=== PATIENT | male | born 1965 | race Caucasian/White ===

== ENCOUNTER → 2017-01-22 | Outpatient (CLI) | payer OTHER ==
--- NOTE | 2017-01-22 17:07 | MR ---
EXAMINATION TYPE: MR brain and iac wo/w con DATE OF EXAM: 01/22/2017 3:48 PM COMPARISON: NONE HISTORY: Dizziness TECHNIQUE: Multiplanar, multiecho imaging of the brain was obtained with and without intravenous adm inistration of 20 mL intravenous MultiHance. FINDINGS: structures are unremarkable. There is a normal craniocervical junction. Echoplanar diffusion imaging is normal. There are normal vascular flow voids. No FLAIR dataset was performed. The orbits appear normal. High-resolution imaging through the posterior fossa exquisitely demonstrates the seventh 8th nerve co mplex bilaterally without evidence of a CP angle mass lesion or intracanalicular acoustic schwannoma. Following intravenous administration of gadolinium, I do not see evidence of abnormal enhancement. Sp ecifically, I do not see evidence of intracanalicular enhancement. IMPRESSION: 1. NO EVIDENCE OF A CP ANGLE MASS LESION OR INTRACANALICULAR ACOUSTIC SCHWANNOMA. 2. INADVERTENT FAILURE TO OBTAIN A FLAIR DATASET. THE PATIENT WILL BE BROUGHT BACK AND AN ADDENDUM WI LL BE PROVIDED.
== END | disposition home or self-care (01) ==
LOC: RADMRIMAIN 14:57
PROVIDERS: ATTEND Internal Medicine
DX: R42 Dizziness and giddiness (principal)
CPT/HCPCS: 70553; A9577

== ENCOUNTER → 2017-01-31 | Outpatient (CLI) | payer OTHER ==
--- NOTE | 2017-02-03 09:18 | ENG ---
VNG INDICATIONS: A 51-year-old male with dizziness and vertigo that began 2 years ago, gradual onset, getting worse, occurring in spells, but can have them for a week at a time during which is constant. Dizziness can be triggered by positional changes such as going from lying to seated position turning the head left to right, bending over, moving ahead or when in the car or driving. There is no reported hearing difficulties or tinnitus or pain, fullness or pressure in the ears. He also experiences light-headedness and can experience headaches with the symptoms. VNG FINDINGS: Saccades shows intact peak velocities, accuracies and latencies. Gaze with fixation is negative for nystagmus in all the directions of gaze including centrally with vision denied. Tracking shows no breakups. Optokinetic nystagmus shows no significant asymmetries at faster or slower speeds. Static position testing shows no nystagmus in any of the 6 positions tested either with eyes open or with vision denied. Dellrose-Hallpike maneuvers unable to do due to mobility issues. Caloric testing shows an 8% unilateral left caloric weakness, which is within normal limits. Fixation index negative. IMPRESSION: Unremarkable VNG study. Shandra-Hallpike maneuver is not able to be done and so could not exclude benign positional vertigo. MTDD
== END | disposition home or self-care (01) ==
LOC: NEUROMAIN 06:47
PROVIDERS: ATTEND Internal Medicine
DX: R42 Dizziness and giddiness (principal)
CPT/HCPCS: 92537; 92540

== ENCOUNTER → 2017-02-06 | Outpatient (CLI) | payer OTHER ==
--- NOTE | 2017-02-06 21:12 | MR ---
EXAMINATION TYPE: MR cervical spine wo con DATE OF EXAM: 02/06/2017 COMPARISON: NONE HISTORY: Radiculopathy, M 54.12, neck pain TECHNIQUE: Multiplanar, multisequence images of the cervical spine were acquired. C2-C3: No evidence for degenerative disc disease. No disc bulge/herniation or protrusion. No Canal stenosis. Foramina are patent bilaterally. C3-C4: Left posterior paracentral extension of endplate disc complex causes minimal anterior lateral mass effect on the thecal sac, left-sided foraminal encroachment. C4-C5: Small central posterior disc herniation causes only slight anterior mass effect on the thecal sac. C5-C6: Posterior broad-based disc bulge causes anterior mass effect on the thecal sac. Lateral extens ion of endplate disc complex causes bilateral foraminal encroachment. No significant central stenosis . C6-C7: Broad-based posterior disc bulge, endplate disc complex causes minimal anterior mass effect on the thecal sac. No significant central stenosis. C7-T1: No evidence for degenerative disc disease. No disc bulge/herniation or protrusion. No Canal stenosis. Foramina are patent bilaterally. Cervical segments are intact. There is normal alignment. Cervical spinal cord is of normal signal. Craniovertebral junction relationships are within normal limits. IMPRESSION: Degenerative disc disease, foraminal encroachment as described.
== END | disposition home or self-care (01) ==
LOC: RADMRIMAIN 19:57
PROVIDERS: ATTEND Neurological Surgery
DX: M50.10 Cervical disc disorder with radiculopathy, unspecified cervical region (principal)
CPT/HCPCS: 72141

== ENCOUNTER 2020-06-09 11:06 | Observation (INO) | payer MEDICARE, OTHER ==
[2020-06-09 11:40] LABS: Basophils # (A) 0.1 k/uL (0-0.2); Basophils % (A) 1 %; Eosinophils # (A) 0.2 k/uL (0-0.7); Eosinophils % (A) 3 %; HCT 43.5 % (39.0-53.0); Lymphocytes # (A) 2.7 k/uL (1.0-4.8); Lymphocytes % (A) 38 %; MCH 31.1 pg (25.0-35.0); MCHC 34.6 g/dL (31.0-37.0); MCV 89.8 fL (80.0-100.0); Mean Platelet Volume 7.1; Monocytes # (A) 0.4 k/uL (0-1.0); Monocytes % (A) 5 %; Neutrophils # (A) 3.8 k/uL (1.3-7.7); Neutrophils % (A) 52 %; Platelet Count 203 k/uL (150-450); RBC 4.84 m/uL (4.30-5.90); RDW 11.9 % (11.5-15.5); WBC 7.3 k/uL (3.8-10.6)
--- NOTE | 2020-06-09 11:40 | ED ---
General Adult HPI - General Chief complaint: Chest Pain Stated complaint: chest pain Time Seen by Provider: 06/09/20 11:35 Source: patient, family, RN notes reviewed Mode of arrival: wheelchair Limitations: no limitations - History of Present Illness Initial comments: Patient is a pleasant 54-year-old male presenting to the emergency Department with complaints of chest discomfort. Patient has had some symptoms on and off over the past year. Symptoms worse this morning. Discomfort has started to improve and is currently mild rated 3/4. Discomfort feels like pressure across the chest. Patient was slightly short of breath and a little bit sweaty earlier. No nausea. No history of known cardiac problems. No leg pain or leg swelling. Discomfort is described as tightness. - Related Data Home Medications Medication Instructions Recorded Confirmed Ascorbic Acid [Vitamin C] 500 mg PO DAILY 06/09/20 06/09/20 Atorvastatin [Lipitor] 20 mg PO DAILY 06/09/20 06/09/20 Cholecalciferol [Vitamin D3 (25 1,000 unit PO DAILY 06/09/20 06/09/20 Mcg = 1000 Iu)] Escitalopram [Lexapro] 20 mg PO DAILY 06/09/20 06/09/20 Meloxicam [Mobic] 15 mg PO DAILY 06/09/20 06/09/20 Allergies Allergy/AdvReac Type Severity Reaction Status Date / Time hydromorphone [From Dilaudid] Allergy Rash/Hives Verified 06/09/20 12:45 Review of Systems ROS Statement: Those systems with pertinent positive or pertinent negative responses have been documented in the HPI. ROS Other: All systems not noted in ROS Statement are negative. Constitutional: Denies: fever Eyes: Denies: eye pain ENT: Denies: ear pain Respiratory: Reports: as per HPI. Denies: cough Cardiovascular: Reports: as per HPI, chest pain Endocrine: Reports: fatigue Gastrointestinal: Denies: abdominal pain, nausea Genitourinary: Denies: urgency Musculoskeletal: Denies: back pain Skin: Denies: rash Neurological: Denies: weakness Past Medical History Past Medical History: No Reported History, Hyperlipidemia Past Surgical History: Orthopedic Surgery Additional Past Surgical History / Comment(s): pyloric stenosis, shoulder and knee surgery Smoking Status: Former smoker Past Alcohol Use History: None Reported Past Drug Use History: None Reported General Exam Limitations: no limitations General appearance: alert, in no apparent distress Head exam: Present: normocephalic Eye exam: Present: normal appearance Neck exam: Present: normal inspection Respiratory exam: Present: normal lung sounds bilaterally. Absent: chest wall tenderness Cardiovascular Exam: Present: regular rate, normal rhythm Expanded Peripheral pulses: 2+: Radial (R), Radial (L), Dorsalis Pedis (R), Dorsalis Pedis (L) GI/Abdominal exam: Present: soft. Absent: tenderness Extremities exam: Present: normal inspection. Absent: pedal edema, calf tenderness Neurological exam: Present: alert Psychiatric exam: Present: normal affect, normal mood Skin exam: Present: normal color Course Vital Signs 06/09/20 06/09/20 11:10 12:12 Temperature 98.3 F Pulse Rate 71 57 L Respiratory 18 18 Rate Blood Pressure 150/94 177/90 O2 Sat by Pulse 95 97 Oximetry EKG Findings - EKG Comments: EKG Findings:: Normal sinus rhythm 61. KS 164. QRS 100. QT 424. QTC 426. Normal axis. LVH criteria. No acute ST change. Medical Decision Making - Medical Decision Making Patient reevaluated and resting comfortably in bed. Only minimal discomfort at this time. Patient and family updated on results and plan. [facility] physician group has been paged for admission, covering for Dr. Farley, who admits for Dr. Centeno. - Lab Data Result diagrams: 06/09/20 11:22 06/09/20 11:22 Lab Results 06/09/20 06/09/20 06/09/20 Range/Units 11:22 11:22 11:22 WBC 7.3 (3.8-10.6) k/uL RBC 4.84 (4.30-5.90) m/uL Hgb 15.0 (13.0-17.5) gm/dL Hct 43.5 (39.0-53.0) % MCV 89.8 (80.0-100.0) fL MCH 31.1 (25.0-35.0) pg MCHC 34.6 (31.0-37.0) g/dL RDW 11.9 (11.5-15.5) % Plt Count 203 (150-450) k/uL MPV 7.1 Neutrophils % 52 % Lymphocytes % 38 % Monocytes % 5 % Eosinophils % 3 % Basophils % 1 % Neutrophils # 3.8 (1.3-7.7) k/uL Lymphocytes # 2.7 (1.0-4.8) k/uL Monocytes # 0.4 (0-1.0) k/uL Eosinophils # 0.2 (0-0.7) k/uL Basophils # 0.1 (0-0.2) k/uL PT 10.1 (9.0-12.0) sec INR 1.0 (<1.2) APTT 24.4 (22.0-30.0) sec D-Dimer (<0.60) mg/L FEU Sodium 138 (137-145) mmol/L Potassium 4.2 (3.5-5.1) mmol/L Chloride 110 H (98-107) mmol/L Carbon Dioxide 23 (22-30) mmol/L Anion Gap 5 mmol/L BUN 16 (9-20) mg/dL Creatinine 0.90 (0.66-1.25) mg/dL Est GFR (CKD-EPI)AfAm >90 (>60 ml/min/1.73 sqM) Est GFR (CKD-EPI)NonAf >90 (>60 ml/min/1.73 sqM) Glucose 111 H (74-99) mg/dL Calcium 9.0 (8.4-10.2) mg/dL Magnesium 1.9 (1.6-2.3) mg/dL Total Bilirubin 0.6 (0.2-1.3) mg/dL AST 29 (17-59) U/L ALT 24 (4-49) U/L Alkaline Phosphatase 59 (38-126) U/L Troponin I (0.000-0.034) ng/mL Total Protein 6.6 (6.3-8.2) g/dL Albumin 3.9 (3.5-5.0) g/dL 06/09/20 06/09/20 Range/Units 11:22 11:22 WBC (3.8-10.6) k/uL RBC (4.30-5.90) m/uL Hgb (13.0-17.5) gm/dL Hct (39.0-53.0) % MCV (80.0-100.0) fL MCH (25.0-35.0) pg MCHC (31.0-37.0) g/dL RDW (11.5-15.5) % Plt Count (150-450) k/uL MPV Neutrophils % % Lymphocytes % % Monocytes % % Eosinophils % % Basophils % % Neutrophils # (1.3-7.7) k/uL Lymphocytes # (1.0-4.8) k/uL Monocytes # (0-1.0) k/uL Eosinophils # (0-0.7) k/uL Basophils # (0-0.2) k/uL PT (9.0-12.0) sec INR (<1.2) APTT (22.0-30.0) sec D-Dimer 0.19 (<0.60) mg/L FEU Sodium (137-145) mmol/L Potassium (3.5-5.1) mmol/L Chloride (98-107) mmol/L Carbon Dioxide (22-30) mmol/L Anion Gap mmol/L BUN (9-20) mg/dL Creatinine (0.66-1.25) mg/dL Est GFR (CKD-EPI)AfAm (>60 ml/min/1.73 sqM) Est GFR (CKD-EPI)NonAf (>60 ml/min/1.73 sqM) Glucose (74-99) mg/dL Calcium (8.4-10.2) mg/dL Magnesium (1.6-2.3) mg/dL Total Bilirubin (0.2-1.3) mg/dL AST (17-59) U/L ALT (4-49) U/L Alkaline Phosphatase (38-126) U/L Troponin I <0.012 (0.000-0.034) ng/mL Total Protein (6.3-8.2) g/dL Albumin (3.5-5.0) g/dL - Radiology Data Radiology results: image reviewed (Chest x-ray does not reveal acute process. Chronic appearing changes) Disposition Clinical Impression: Chest pain Disposition: ADMITTED IP TO THIS HOSP Is patient prescribed a controlled substance at d/c from ED?: No Referrals: Tim Wheatley MD [Primary Care Provider] - 1-2 days Decision Time: 13:37
--- NOTE | 2020-06-09 11:44 | XR ---
EXAMINATION TYPE: XR chest 2V DATE OF EXAM: 06/09/2020 COMPARISON: None HISTORY: 54-year-old male with chest pain TECHNIQUE: PA and lateral views FINDINGS: Heart normal size. Aorta and pulmonary vasculature within normal limits. Mild interstitial prominence . No consolidation or pleural effusion. IMPRESSION: Chronic-appearing changes, possible underlying bronchitis or chronic asthma given interstitial promin ence. Otherwise, no acute process seen.
[2020-06-09 11:51] LABS: ALT 24 U/L (4-49); AST 29 U/L (17-59); African American GFR (CKD) >90 (>60 ml/min/1.73 sqM); Albumin 3.9 g/dL (3.5-5.0); Alkaline Phosphatase 59 U/L (38-126); Anion Gap 5 mmol/L; Blood Urea Nitrogen 16 mg/dL (9-20); Carbon Dioxide 23 mmol/L (22-30); Chloride 110 mmol/L (98-107); Glucose 111 mg/dL (74-99); Magnesium 1.9 mg/dL (1.6-2.3); Non-African American GFR(CKD) >90 (>60 ml/min/1.73 sqM); Potassium 4.2 mmol/L (3.5-5.1); Prothrombin Time 10.1 sec (9.0-12.0); Sodium 138 mmol/L (137-145); Total Bilirubin 0.6 mg/dL (0.2-1.3); Total Protein 6.6 g/dL (6.3-8.2)
[2020-06-09 11:52] LABS: Partial Thromboplastin Time 24.4 sec (22.0-30.0)
[2020-06-09] MEDS ORDERED: ASPIRIN 81 MG PO STA (12:02)
[2020-06-09] MEDS ORDERED: NITROGLYCERIN OINT 1 INCH/GM PACKET TOPICAL STA (12:02)
[2020-06-09] MEDS ORDERED: NITROGLYCERIN SL TABS 0.4 MG TAB SUBLINGUAL PRN (13:37)
[2020-06-09] MEDS ORDERED: IPRATROPIUM-ALBUTEROL 3 ML NEB INHALATION PRN (17:24)
--- NOTE | 2020-06-09 17:24 | P.HPIM ---
History of Present Illness H&P Date: 06/09/20 Chief Complaint: Chest pain The patient is a 54-year-old male with history of hyperlipidemia [id number] tobacco history quit smoking in August of this year. The patient states he has had on and off chest pain for the last year but has not been seen by medical profession. He denies any association with activity related to his chest pain however he has noticed increased shortness of breath since he stopped smoking. The patient denies any association with food. Last night he had pain that he rated 8 out 10 without associated nausea or vomiting he denied any fevers or chills came to the emergency room to evaluate for evaluation his initial workup was negative however given his risk factor profile was hospitalized for further workup and management. Review of Systems Complete review of systems done and negative other than stated above Past Medical History Past Medical History: No Reported History, Hyperlipidemia History of Any Multi-Drug Resistant Organisms: None Reported Past Surgical History: Orthopedic Surgery Additional Past Surgical History / Comment(s): pyloric stenosis, shoulder and knee surgery Past Anesthesia/Blood Transfusion Reactions: No Reported Reaction Past Psychological History: No Psychological Hx Reported Smoking Status: Former smoker Past Alcohol Use History: None Reported Past Drug Use History: None Reported Medications and Allergies Home Medications Medication Instructions Recorded Confirmed Type Ascorbic Acid [Vitamin C] 500 mg PO DAILY 06/09/20 06/09/20 History Atorvastatin [Lipitor] 20 mg PO DAILY 06/09/20 06/09/20 History Cholecalciferol [Vitamin D3 (25 1,000 unit PO DAILY 06/09/20 06/09/20 History Mcg = 1000 Iu)] Escitalopram [Lexapro] 20 mg PO DAILY 06/09/20 06/09/20 History Meloxicam [Mobic] 15 mg PO DAILY 06/09/20 06/09/20 History Allergies Allergy/AdvReac Type Severity Reaction Status Date / Time hydromorphone [From Dilaudid] Allergy Rash/Hives Verified 06/09/20 12:45 Physical Exam Vitals: Vital Signs Temp Pulse Pulse Resp BP BP Pulse Ox 06/09/20 16:57 97.5 F L 56 L 18 147/97 97 06/09/20 16:12 97.5 F L 67 16 154/84 98 06/09/20 15:56 55 L 18 148/88 96 06/09/20 14:13 55 L 18 144/88 95 06/09/20 13:18 56 L 18 144/97 96 06/09/20 12:12 57 L 18 177/90 97 06/09/20 11:10 98.3 F 71 18 150/94 95 Intake and Output 06/09/20 06/09/20 06/09/20 06:59 14:59 22:59 Other: # Voids 1 Weight 108.862 kg 108.862 kg - Constitutional General appearance: no acute distress - EENT Eyes: PERRLA - Respiratory Respiratory: bilateral: CTA - Cardiovascular Rhythm: regular - Gastrointestinal General gastrointestinal: normal bowel sounds - Integumentary Integumentary: normal - Neurologic Neurologic: CNII-XII intact - Musculoskeletal Musculoskeletal: strength equal bilaterally - Psychiatric Psychiatric: A&O x's 3, appropriate affect Results CBC & Chem 7: 06/09/20 11:22 06/09/20 11:22 Labs: Abnormal Lab Results - Last 24 Hours (Table) 06/09/20 Range/Units 11:22 Chloride 110 H (98-107) mmol/L Glucose 111 H (74-99) mg/dL Chest x-ray: report reviewed Abdominal x-ray: report reviewed Thrombosis Risk Factor Assmnt - Choose All That Apply Each Factor Represents 1 point: Age 41-60 years Thrombosis Risk Factor Assessment Total Risk Factor Score: 1 Thrombosis Risk Factor Assessment Level: Low Risk Assessment and Plan (1) Chest pain Narrative/Plan: Serial cardiac enzymes, morphine and oxygen nitro and aspirin, cardiology consu lt patient with risk factors of age hyperlipidemia on significant tobacco history Current Visit: Yes Status: Acute Code(s): R07.9 - CHEST PAIN, UNSPECIFIED SNOMED Code(s): 86094255 (2) Hyperlipidemia Narrative/Plan: Continue statin Current Visit: Yes Status: Acute Code(s): E78.5 - HYPERLIPIDEMIA, UNSPECIFIED SNOMED Code(s): 79759625 (3) Dyspnea Narrative/Plan: Brice cardiac in etiology however given his significant tobacco history if cardiac workup is negative consider COPD Current Visit: Yes Status: Acute Code(s): R06.00 - DYSPNEA, UNSPECIFIED SNOMED Code(s): 792509492
[2020-06-09] MEDS: NITROGLYCERIN OINT 1 INCH/GM PACKET TOPICAL SCH (17:59)
[2020-06-09] MEDS: ESCITALOPRAM 20 MG TAB PO SCH (18:52)
[2020-06-10] MEDS: NITROGLYCERIN OINT 1 INCH/GM PACKET TOPICAL SCH ×2 (00:46→05:21)
[2020-06-10 08:45] VITALS: BP 154/88; PULSE 63; RESP 16; TEMP 98
[2020-06-10] MEDS ORDERED: DOBUTamine DRIP for NUC MED 500 MG in DEXTROSE/WATER 1 250ML.BAG IV ONE (08:45)
[2020-06-10] MEDS ORDERED: ASPIRIN 325 MG TAB PO SCH (09:00)
[2020-06-10] MEDS ORDERED: CHOLECALCIFEROL 1,000 UNIT TAB PO SCH (09:00)
[2020-06-10] MEDS ORDERED: ASCORBIC ACID 500 MG TAB PO SCH (09:00)
[2020-06-10] MEDS ORDERED: ASPIRIN 81 MG PO SCH (09:00)
[2020-06-10] MEDS ORDERED: ATORVASTATIN 20 MG TAB PO SCH (09:00)
[2020-06-10] MEDS ORDERED: lisinopriL 20 MG TAB PO SCH (09:00)
[2020-06-10] MEDS: ESCITALOPRAM 20 MG TAB PO SCH (09:03)
[2020-06-10 10:03] LABS: African American GFR (CKD) >90 (>60 ml/min/1.73 sqM); Anion Gap 3 mmol/L; Blood Urea Nitrogen 13 mg/dL (9-20); Calcium 8.9 mg/dL (8.4-10.2); Carbon Dioxide 29 mmol/L (22-30); Chloride 106 mmol/L (98-107); Cholesterol 214 mg/dL (<200); Glucose 92 mg/dL (74-99); HDL Cholesterol 28 mg/dL (40-60); LDL Cholesterol,Calculated 146 mg/dL (0-99); Non-African American GFR(CKD) >90 (>60 ml/min/1.73 sqM); Potassium 4.2 mmol/L (3.5-5.1); Sodium 138 mmol/L (137-145); Triglycerides 202 mg/dL (<150)
--- NOTE | 2020-06-10 10:08 | ECHOF ---
Referral Reason:cp MEASUREMENTS -------- HEIGHT: 182.9 cm WEIGHT: 108.9 kg BP: IVSd: 1.3 cm (0.6 - 1.1) LVIDd: 4.4 cm (3.9 - 5.3) LVPWd: 1.2 cm (0.6 - 1.1) IVSs: 1.4 cm LVIDs: 3.3 cm LVPWs: 1.5 cm LA Diam: 4.0 cm (2.7 - 3.8) RVIDd: 3.4 cm (< 3.3) Ao Diam: 2.8 cm (2.0 - 3.7) LA Diam: 4.4 cm (2.7 - 3.8) AV Cusp: 2.1 cm (1.5 - 2.6) EPSS: 0.6 cm MV E Yonathan: 0.62 m/s MV DecT: 142 ms MV A Yonathan: 0.67 m/s MV E/A Ratio: 0.92 RAP: 5.00 mmHg RVSP: 23.58 mmHg MV EF SLOPE: 102.58 mm/s (70 - 150) MV EXCURSION: 17.70 mm (> 18.000) FINDINGS -------- Sinus rhythm. This was a technically good study. The left ventricular size is normal. There is mild concentric left ventricular hypertrophy. Overa ll left ventricular systolic function is low-normal with, an EF between 50 - 55 %. The right ventricle is normal in size. The left atrial size is normal. The right atrial size is normal. The aortic valve is trileaflet, and appears structurally normal. No aortic stenosis or regurgitation. Mild mitral regurgitation is present. Mild tricuspid regurgitation present. Right ventricular systolic pressure is normal at < 35 mmHg. There is no pulmonic regurgitation present. The aortic root size is normal. There is no pericardial effusion. CONCLUSIONS -------- 1. The left ventricular size is normal. 2. There is mild concentric left ventricular hypertrophy. 3. Overall left ventricular systolic function is low-normal with, an EF between 50 - 55 %. 4. The right ventricle is normal in size. 5. The left atrial size is normal. 6. The right atrial size is normal. 7. Mild mitral regurgitation is present. 8. Mild tricuspid regurgitation present. 9. There is no pulmonic regurgitation present. 10. The aortic root size is normal. 11. There is no pericardial effusion. MACHINE WOOD SANDER: Suzanne Ramirez RDCS
[2020-06-10] MEDS ORDERED: ATORVASTATIN 20 MG TAB PO STA (11:49)
--- NOTE | 2020-06-10 11:51 | P.CRDCN ---
History of Present Illness History of present illness: sweaty, chest pain across the chest. first time he felt this pain. HISTORY OF PRESENTING ILLNESS This is a pleasant 54-year-old male past medical history significant for dyslipidemia and former nicotine dependence. He denies prior history of coronary artery disease and does not follow with a contact manager for any reason. We have been asked to see in consultation for chest pain. He states yesterday while driving to work he had an episode of chest discomfort across his chest d escribed as a pressure sensation associated with acute diaphoresis and shortness of breath. The symptoms lasted for approximately 60-90 minutes before slowly subsiding on their own. In the past he has had chest discomfort over the previous one year but this was the most intense episode he has experienced. He is currently chest pain-free. He denies prior history of coronary artery disease and has never had a stress test. Blood pressure on arrival was elevated 150/94 and 177/90. He has never been diagnosed in the past with hypertension. He also complains of exertional shortness of breath that has been ongoing for the previous one year. He is quite active physically but frequently has to stop to catch his breath. DIAGNOSTICS EKG reveals sinus mechanism with LVH. Chest xray possible underlying bronchitis or chronic asthma with increased interstitial prominence, appears chronic. Laboratory reviewed, CBC unremarkable, d-dimer 0.19, sodium 138, potassium 4.2, creatinine 0.94, LDL 146, HDL 28 and cardiac enzymes negative 3. Current cardiac medications include atorvastatin 20 mg daily. REVIEW OF SYSTEMS At the time of my exam: CONSTITUTIONAL: Denies fever or chills. CARDIOVASCULAR: Denies chest pain, shortness of breath, orthopnea, PND or palpitations. RESPIRATORY: Denies cough. GASTROINTESTINAL: Denies abdominal pain, diarrhea, constipation, nausea or vomiting. MUSCULOSKELETAL: Denies myalgias. NEUROLOGIC: Denies numbness, tingling or weakness. ENDOCRINE: Denies fatigue, weight change, polydipsia or polyurina. GENITOURINARY: Denies burning, hematuria or urgency with micturation. HEMATOLOGIC: Denies history of anemia or bleeding. PHYSICAL EXAMINATION Blood pressure 154/88 heart rate 63 afebrile and maintaining oxygen saturation on room air. CONSTITUTIONAL: No apparent distress. HEENT: Head is normocephalic. Pupils are equal, round. Sclerae anicteric. Mucous membranes of the mouth are moist. No JVD. No carotid bruit. CHEST EXAMINATION: Lungs are clear to auscultation. No chest wall tenderness is noted on palpation or with deep breathing. HEART EXAMINATION: Regular rate and rhythm. S1, S2 heard. No murmurs, gallops or rub. ABDOMEN: Soft, nontender. Positive bowel sounds. EXTREMITIES: 2+ peripheral pulses, no lower extremity edema and no calf tenderness. NEUROLOGIC EXAMINATION: Patient is awake, alert and oriented x3. ASSESSMENT Chest pain Hypertension Dyslipidemia Former nicotine dependence PLAN An acute coronary event has been ruled out. Discontinue Nitropaste. Initiate lisinopril 20 mg daily for optimal blood pressure control. Increase Lipitor to 40 mg daily. Obtain 2-D echocardiogram and Doppler study to assess cardiac structure and function. Perform dobutamine stress echocardiogram to assess for stress-induced cardiac ischemia. Thank you kindly for this consultation. Nurse Practitioner note has been reviewed, I agree with a documented findings and plan of care. Patient was seen and examined. Past Medical History Past Medical History: No Reported History, Hyperlipidemia History of Any Multi-Drug Resistant Organisms: None Reported Past Surgical History: Orthopedic Surgery Additional Past Surgical History / Comment(s): pyloric stenosis, shoulder and knee surgery Past Anesthesia/Blood Transfusion Reactions: No Reported Reaction Past Psychological History: No Psychological Hx Reported Smoking Status: Former smoker Past Alcohol Use History: None Reported Past Drug Use History: None Reported Medications and Allergies Home Medications Medication Instructions Recorded Confirmed Type Ascorbic Acid [Vitamin C] 500 mg PO DAILY 06/09/20 06/09/20 History Atorvastatin [Lipitor] 20 mg PO DAILY 06/09/20 06/09/20 History Cholecalciferol [Vitamin D3 (25 1,000 unit PO DAILY 06/09/20 06/09/20 History Mcg = 1000 Iu)] Escitalopram [Lexapro] 20 mg PO DAILY 06/09/20 06/09/20 History Meloxicam [Mobic] 15 mg PO DAILY 06/09/20 06/09/20 History Allergies Allergy/AdvReac Type Severity Reaction Status Date / Time hydromorphone [From Dilaudid] Allergy Rash/Hives Verified 06/09/20 12:45 Physical Exam Vitals: Vital Signs Temp Pulse Pulse Resp BP BP Pulse Ox 06/10/20 03:50 97.6 F 65 17 120/57 96 06/09/20 19:50 97.4 F L 52 L 17 130/71 95 06/09/20 16:57 97.5 F L 56 L 18 147/97 97 06/09/20 16:12 97.5 F L 67 16 154/84 98 06/09/20 15:56 55 L 18 148/88 96 06/09/20 14:13 55 L 18 144/88 95 06/09/20 13:18 56 L 18 144/97 96 06/09/20 12:12 57 L 18 177/90 97 06/09/20 11:10 98.3 F 71 18 150/94 95 Intake and Output 06/09/20 06/10/20 06/10/20 22:59 06:59 14:59 Other: Voiding Method Toilet Toilet # Voids 1 Weight 108.862 kg Results 06/09/20 11:22 06/10/20 08:49 Cardiac Enzymes 06/09/20 06/09/20 06/09/20 Range/Units 11:22 11:22 15:11 AST 29 (17-59) U/L Troponin I <0.012 <0.012 (0.000-0.034) ng/mL 06/09/20 Range/Units 17:15 AST (17-59) U/L Troponin I <0.012 (0.000-0.034) ng/mL Coagulation 06/09/20 Range/Units 11: PT 10.1 (9.0-12.0) sec APTT 24.4 (22.0-30.0) sec CBC 06/09/20 Range/Units 11:22 WBC 7.3 (3.8-10.6) k/uL RBC 4.84 (4.30-5.90) m/uL Hgb 15.0 (13.0-17.5) gm/dL Hct 43.5 (39.0-53.0) % Plt Count 203 (150-450) k/uL Comprehensive Metabolic Panel 06/09/20 Range/Units 11:22 Sodium 138 (137-145) mmol/L Potassium 4.2 (3.5-5.1) mmol/L Chloride 110 H (98-107) mmol/L Carbon Dioxide 23 (22-30) mmol/L BUN 16 (9-20) mg/dL Creatinine 0.90 (0.66-1.25) mg/dL Glucose 111 H (74-99) mg/dL Calcium 9.0 (8.4-10.2) mg/dL AST 29 (17-59) U/L ALT 24 (4-49) U/L Alkaline Phosphatase 59 (38-126) U/L Total Protein 6.6 (6.3-8.2) g/dL Albumin 3.9 (3.5-5.0) g/dL Current Medications Generic Name Dose Route Start Last Admin Trade Name Freq PRN Reason Stop Dose Admin Albuterol/Ipratropium 3 ml 06/09/20 17:24 Ipratropium-Albuterol 3 Ml Neb INHALATION RT-QID PRN Shortness Of Breath Or Wheezing Ascorbic Acid 500 mg 06/10/20 09:00 Ascorbic Acid 500 Mg Tab PO DAILY [facility] Aspirin 325 mg 06/10/20 09:00 Aspirin 325 Mg Tab PO DAILY [facility] Atorvastatin Calcium 20 mg 06/10/20 09:00 Atorvastatin 20 Mg Tab PO DAILY [facility] Cholecalciferol 1,000 unit 06/10/20 09:00 Cholecalciferol 1,000 Unit Tab PO DAILY [facility] Escitalopram Oxalate 20 mg 06/09/20 17:30 06/09/20 18:52 Escitalopram 20 Mg Tab PO 20 mg DAILY [facility] Administration Nitroglycerin 0.4 mg 06/09/20 13:37 Nitroglycerin Sl Tabs 0.4 Mg Tab SUBLINGUAL Q5M PRN Chest Pain Nitroglycerin 1 inch 06/09/20 18:00 06/10/20 05:21 Nitroglycerin Oint 1 Inch/Gm Packet TOPICAL Not Given Q6HR [facility] Sodium Chloride 10 ml 06/09/20 21:00 06/09/20 19:49 Sodium Chloride 0.9% Flush 10 Ml Syringe IV 10 ml BID [facility] Administration Intake and Output 06/09/20 06/10/20 06/10/20 22:59 06:59 14:59 Other: Voiding Method Toilet Toilet # Voids 1 Weight 108.862 kg 06/09/20 11:22 06/09/20 11:22
--- NOTE | 2020-06-10 13:23 | P.STRESS ---
- Stress Test Note Stress Test Results/Findings: Exam Performed: dobutamine stress echo Exam Date: 06/10/20 Reason for Exam: CHEST PAIN Height: 6 ft Weight: 108.86 kg Protocol: DOBUTAMINE STRESS ECHO Stage: 3 Duration of Exercise: 8:43 MINUTE INFUSION Resting Heart Rate: 59 Resting Blood Pressure: 129/66 Maximum Achieved Heart Rate: 140 Maximum Achieved Blood Pressure: 175/49 85% PMHR: 139 100% PMHR: 164 METS: N/A Technologist Comment: Stress Test Results/Findings: Baseline heart rate 59 beats a minute, Baseline blood pressure 122/66 mmHg baseline 12-lead ECG shows sinus rhythm with nonspecific ST-T abnormalities and occasional PVCs with a right bundle branch block like morphology Patient received dobutamine infusion per protocol to 30 mics. Peak heart rate 140 beats a minute, peak blood pressure 175/49 mmHg Occasional PVCs noted No ST segments suggestive of ischemia With dobutamine infusion there is a stepwise increment in overall LV contractility without development of any wall motion abnormalities @Recovery regional global LV systolic function remained normal Impression No ECG or echocardiographic evidence for ischemia on this to between stress echo Occasional PVCs
[2020-06-11] MEDS ORDERED: ATORVASTATIN 40 MG TAB PO SCH (09:00)
== END 2020-06-10 15:38 | disposition home or self-care (01) ==
LOC: EC 11:06 → 3NCARDOBS 13:37
PROVIDERS: ADMIT Hospitalist; ATTEND Hospitalist
DX: R07.89 Other chest pain (principal); I10 Essential (primary) hypertension; E78.5 Hyperlipidemia, unspecified; R06.02 Shortness of breath; R61 Generalized hyperhidrosis; I49.3 Ventricular premature depolarization; Z79.1 Long term (current) use of non-steroidal anti-inflammatories (NSAID); Z79.899 Other long term (current) drug therapy; Z88.5 Allergy status to narcotic agent; Z87.891 Personal history of nicotine dependence; Z98.890 Other specified postprocedural states
CPT/HCPCS: 93005 ×2; 99285; 36415; 93306; 93351; 85379; 80061; 80053; 80048; 83735; 84484; 85025; 85610; 85730; 71046; G0378 ×2; J1250

== ENCOUNTER → 2020-09-24 | Outpatient (CLI) | payer MEDICARE, OTHER ==
--- NOTE | 2020-09-25 07:06 | CT ---
EXAMINATION TYPE: CT chest w con DATE OF EXAM: 09/24/2020 COMPARISON: Chest x-ray June 09, 2020 HISTORY: chest pain CT DLP: 529.1 mGycm. Automated Exposure Control for Dose Reduction was Utilized. TECHNIQUE: CT scan of the thorax is performed following with IV Contrast, patient injected with 100 mL of Isovue 300. FINDINGS: LUNGS: The lungs remain grossly clear, there is no concerning parenchymal mass or nodule identified. No suspicious consolidation. There is no pleural effusion or pneumothorax seen. The tracheobronchia l tree is patent. MEDIASTINUM: There are no greater than 1 cm hilar or mediastinal lymph nodes. Prominent but subcentim eter right paratracheal lymph node axial image 19 is nonspecific. No cardiomegaly or pericardial eff usion is seen. Coronary artery calcification is present which is noted marker for underlying coronar y artery disease. OTHER: Contracted gallbladder likely product of recent meal ingestion as there is debris filled stoma ch. IMPRESSION: No acute cardiopulmonary process.
== END | disposition home or self-care (01) ==
LOC: RADCTMAIN 18:33
PROVIDERS: ATTEND Internal Medicine
DX: R07.9 Chest pain, unspecified (principal)
CPT/HCPCS: 71260

== ENCOUNTER 2020-10-15 08:53 | Day surgery (SDC) | payer MEDICARE, OTHER ==
[2020-10-13 10:09] VITALS: BMI 32.5
[~2020-10-15 08:53] MED LIST: LACTATED RINGERS 1,000 ML IV SCH
[2020-10-15 09:23] VITALS: TEMP 97.8
[2020-10-15] MEDS ORDERED: LIDOCAINE 1% INJ 10MG/ML (20 ML MDV) ONE (10:00)
[2020-10-15] MEDS ORDERED: PROPOFOL 10 MG/ML 20 ML VIAL IV ONE (10:00)
--- NOTE | 2020-10-15 10:12 | P.PCN ---
Date of Procedure: 10/15/20 Procedure(s) Performed: BRIEF HISTORY: Patient is a 54-year-old, pleasant, white male scheduled for an upper endoscopy as a part of evaluation of epigastric pain and heartburn for the last few years duration.. PROCEDURE PERFORMED: Esophagogastroduodenoscopy with biopsy. PREOPERATIVE DIAGNOSIS: GERD and epigastric pain. IV sedation per anesthesia. PROCEDURE: After informed consent was obtained, the patient was brought into the endoscopy unit. IV sedation was administered by Anesthesia under continuous monitoring. Initially the Olympus GIF-140 video endoscope was inserted into the mouth. Esophagus intubated without any difficulty. It was gradually advanced into the stomach and duodenum and carefully examined. The bulb of the duodenum appeared normal. In the second part of the duodenum there was a 1 cm polyp identified which was biopsied and there was significant mucus seen with the biopsy suspicious for a mucocele The scope at this time was withdrawn to the stomach, adequately insufflated with air, and upon careful examination, mucosa of the antrum, body, cardia and the fundus appeared normal. The scope was then withdrawn into the esophagus. The GE junction was located at 42 cm from the incisors. There were linear erosions in the distal esophagus consistent with LA grade B reflux esophagitis. The rest of the esophagus appeared normal and the patient tolerated the procedure well. IMPRESSION: 1. 1 cm duodenal polyp in the second part of the duodenum status post biopsies. 2. Linear erosions in the distal esophagus consistent with LA grade B reflux esophagitis. RECOMMENDATIONS: The findings of this examination were discussed with the patient as well as his family. He was advised to follow with the biopsy results. He was given a prescription for Prilosec 20 mg daily to be taken half hour before breakfast and follow antireflux measures. He'll be seen in office in 3 months..
[2020-10-15 10:20] VITALS: RESP 18
[2020-10-15 10:40] VITALS: BP 147/89; PULSE 67
== END 2020-10-15 11:00 | disposition home or self-care (01) ==
LOC: ORWHC2ENDO 08:53
PROVIDERS: ATTEND Internal Medicine Gastroenterology
DX: K21.9 Gastro-esophageal reflux disease without esophagitis (principal); K31.7 Polyp of stomach and duodenum; K22.10 Ulcer of esophagus without bleeding; I10 Essential (primary) hypertension; E78.5 Hyperlipidemia, unspecified; Z79.899 Other long term (current) drug therapy; Z88.5 Allergy status to narcotic agent
CPT/HCPCS: 88305; 43239; J2001; J2704

== ENCOUNTER → 2021-12-13 | Outpatient (CLI) | payer MEDICARE, OTHER ==
--- NOTE | 2021-12-14 07:37 | CT ---
EXAMINATION TYPE: CT abdomen pelvis wo/w con DATE OF EXAM: 12/13/2021 COMPARISON: CT abdomen and pelvis June 11, 2015 HISTORY: unspecified left sided abdominal pain CT DLP: 3810.6 mGycm, Automated Exposure Control for Dose Reduction was Utilized. CONTRAST: CT scan of the abdomen and pelvis is performed with oral and without and with IV Contrast, patient in jected with 100ml mL of Isovue 300. FINDINGS: LUNG BASES: No significant abnormality is appreciated. LIVER/GB: No significant abnormality is appreciated. PANCREAS: No significant abnormality is seen. SPLEEN: No significant abnormality is seen. ADRENALS: No significant abnormality is seen. KIDNEYS: Noncontrast images show no renal calculi bilaterally. Postcontrast images show symmetric cor ticomedullary uptake and excretion without hydronephrosis seen bilaterally. There is simple appearing thin-walled cyst lower pole left kidney now measuring 4.0 x 2.9 cm series 9 image 44. BOWEL: Oral contrast does not reach majority of ileal bowel loops in the right abdomen making evaluat ion slightly suboptimal. There is however no suspicious small or large bowel dilatation. PROSTATE/SEMINAL VESICLES: No gross abnormality seen. LYMPH NODES: No greater than 1cm abdominal or pelvic lymph nodes are appreciated. OSSEOUS STRUCTURES: Mild to moderate disc space narrowing with vacuum disc phenomenon at L4-L5 and L5 -S1 levels. [id number] multilevel spurring throughout the thoracolumbar spine. OTHER: New moderate to large sized fat-containing left inguinal hernia. Stable moderate-sized fat-con taining umbilical hernia. IMPRESSION: 1. New from prior CT moderate to large sized fat-containing left inguinal hernia. Correlate clinicall y to assess if this is level of patient's left-sided pain. Otherwise no significant new or acute find ings seen to account for patient's symptoms.
== END | disposition home or self-care (01) ==
LOC: RADCTMAIN 16:37
PROVIDERS: ATTEND Family Medicine
DX: K40.90 Unilateral inguinal hernia, without obstruction or gangrene, not specified as recurrent (principal)
CPT/HCPCS: 74178; Q9967

== ENCOUNTER → 2022-02-23 | Outpatient (CLI) | payer MEDICARE, OTHER ==
--- NOTE | 2022-02-23 12:11 | US ---
EXAMINATION TYPE: US abdomen limited DATE OF EXAM: 02/23/2022 COMPARISON: Correlation CT 12/13/2021 CLINICAL HISTORY: 48-year-old male K43.6 SPIGELIAN HERNIA. Patient has known left inguinal hernia, st ates he has had pain for years on his left side of abdomen, assess left abd prior to his consult with Dr Henson. Assess for hernia at location of: left side of abdomen TECHNIQUE: Nerve Specialist notes: Scanned patients area of pain from lateral left abdomen down through lo wer left abdomen. FINDINGS: Nerve Specialist notes: No obvious hernia seen in areas that were scanned, with and without valsalva. IMPRESSION: Scanning along the left side of the abdomen at the areas of concern. No discrete abdominal wall herni a is clearly identified.
== END | disposition home or self-care (01) ==
LOC: RADUSWWP 08:10
PROVIDERS: ATTEND Family Medicine
DX: K43.6 Other and unspecified ventral hernia with obstruction, without gangrene (principal)
CPT/HCPCS: 76705

== ENCOUNTER → 2022-12-12 | Outpatient (CLI) | payer MEDICARE, OTHER | LOC: CPPFTMAIN 13:54 | PROVIDERS: ATTEND Internal Medicine Clinical Cardiac Electrophysiology | DX: I51.7 Cardiomegaly (principal); E78.5 Hyperlipidemia, unspecified; I10 Essential (primary) hypertension; Z88.5 Allergy status to narcotic agent | CPT/HCPCS: 94060; 94726; 94729 ==

== ENCOUNTER → 2023-06-08 | Outpatient (CLI) | payer MEDICARE, OTHER ==
--- NOTE | 2023-06-08 14:27 | NM ---
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 Immedia te images and 3 hours post injection images acquired. FINDINGS: There is increased flow to the right knee. There is increased soft tissue uptake to the right knee. Delayed imaging demonstrates increased uptake surrounding the prostheses of the patella and proximal tibia.. IMPRESSION: Increased flow and uptake. Infection or loosening in the differential diagnosis.
== END | disposition home or self-care (01) ==
LOC: RADNMMAIN 10:24
PROVIDERS: ATTEND Family Medicine
DX: M79.89 Other specified soft tissue disorders (principal); Z96.651 Presence of right artificial knee joint
CPT/HCPCS: 78315; A9503

== ENCOUNTER → 2023-12-14 | Outpatient (CLI) | payer MEDICARE ==
--- NOTE | 2023-12-15 04:17 | CTL ---
EXAMINATION TYPE: CT Low Dose Lung DATE OF EXAM ORDERED: 12/14/2023 HISTORY: History of smoking 1.5 packs a day for 20 years, quit 5 years ago. Lung cancer screening CT DLP: 139.[address] CTDI: 3.8 mGy Automated exposure control for dose reduction was used. SCREENING VISIT: First screening visit COMPARISON: CT chest 10/22/2020 TECHNIQUE: Low dose computed tomography scan was performed through the chest at 1 mm thick sections a nd reconstructed images in multiple planes at 1 mm and [address] DIAGNOSTIC QUALITY: Satisfactory FINDINGS: Nodules: Stable left upper lobe 4.4 mm pulmonary nodule (series 6, image 25). Stable right upper lobe 4.8 mm pulmonary nodule (series 6, image 25). Stable right midlung 6.8 mm pulmonary nodule (series 6, image 34). No new or enlarging pulmonary nodules. LUNGS: COPD: Severity: None Fibrosis: Severity: None Lymph nodes: None Other findings: None RIGHT PLEURAL SPACE: Effusion: None Calcification: None Thickening: None Pneumothorax: None LEFT PLEURAL SPACE: Effusion: None Calcification: None Thickening: None Pneumothorax: None HEART: Heart Size: Normal Coronary Calcification: Small Pericardial Effusion: None OTHER FINDINGS: Upper abdomen: None Bony thorax: None Supraclavicular region: None Other: None IMPRESSION: Stable bilateral pulmonary nodules dating back to 2017 and considered benign. No new or enlarging pul monary nodules. CT LUNG RAD AND CT CHEST RECOMMENDATION: Lung-Rad 2 Benign Appearance or Behavior: Continue annual sc reening with LDCT in 12 months. S Modifier (other clinically significant findings): None
== END | disposition home or self-care (01) ==
LOC: RADCTMAIN 09:12
PROVIDERS: ATTEND Family Medicine
DX: Z12.2 Encounter for screening for malignant neoplasm of respiratory organs (principal); R91.8 Other nonspecific abnormal finding of lung field; Z87.891 Personal history of nicotine dependence
CPT/HCPCS: 71271

== ENCOUNTER → 2025-01-07 | Outpatient (CLI) | payer MEDICARE ==
--- NOTE | 2025-01-07 18:59 | MR ---
EXAMINATION TYPE: MR cervical spine wo con DATE OF EXAM: 01/07/2025 5:08 PM COMPARISON: 02/06/2017. CLINICAL INDICATION: Male, 59 years old with history of M54.12 RADICULOPATHY, CERVICAL REGION; [facility], TECHNIQUE: Multi planar, multi sequence imaging was performed utilizing: T1-weighted, T2-weighted, an d turbo inversion recovery imaging of the cervical spine. IV Contrast: mL (None, if empty) FINDINGS: Alignment: The cervical vertebral bodies have preserved heights. Alignment is within normal limits gi liliam patient positioning. Bones: Bone signal is within normal limits. No abnormal bone marrow edema on inversion recovery seque nces. Cord: The spinal cord is unremarkable with regards to their signal intensity and morphology. Discs: Intervertebral disc signal is maintained. C2-C3: No significant disc pathology. The spinal canal is patent. No neural foraminal stenosis. C3-C4: No significant disc pathology. The spinal canal is patent. No neural foraminal stenosis. C4-C5: No significant disc pathology. The spinal canal is patent. Bilateral facet and uncovertebral joint arthropathy are present with mild bilateral neural foraminal stenosis. C5-C6: A disc osteophyte complex is present which minimally narrows the ventral subarachnoid space. Bilateral facet and uncovertebral joint arthropathy are present with mild bilateral neural foraminal stenosis. C6-C7: A disc osteophyte complex is present which minimally narrows the ventral subarachnoid space. Bilateral facet and uncovertebral joint arthropathy are present with mild bilateral neural foraminal stenosis. C7-T1: No significant disc pathology. The spinal canal is patent. No neural foraminal stenosis. Other: None. IMPRESSION: 1. No evidence for disc herniation or significant spinal canal stenosis. 2. Mild disc degeneration with associated osteoarthritic changes. And this is mildly progressed from 2017 [facility], , 01/07/2025 6:56 PM
== END | disposition home or self-care (01) ==
LOC: RADMRIMAIN 16:26
PROVIDERS: ATTEND Family Medicine
DX: M47.22 Other spondylosis with radiculopathy, cervical region (principal)
CPT/HCPCS: 72141